=== PATIENT | male | born 1990 | race Caucasian/White ===

== ENCOUNTER 2019-03-18 09:42 | Emergency (ER) | payer OTHER ==
--- NOTE | 2019-03-18 10:09 | ED Physician Documentation ---
PD HPI ABD PAIN - Stated complaint Stated Complaint: HIP/GROIN PX - Chief complaint Chief Complaint: Abd Pain - History obtained from History obtained from: Patient - History of Present Illness Timing - onset: How many weeks ago (2) Timing - duration: Weeks (2) Timing - details: Gradual onset, Other (worsening for 2 days, R inguinal tenderness, swelling) Pain level max: 7 Pain level now: 2 Severity Comments: moderate when moving or palpating Quality: Fullness/distended, Pain Location: Other (Right inguinal crease) Radiation: Other (none) Improved by: Other (remaining still) Worsened by: Position, Palpation Associated symptoms: No: Fever, Nausea, Vomiting, Hematemesis, Diarrhea, Constipation, Melena, Hematochezia, Dysuria, Hematuria, Chest pain, Testicular pain Similar symptoms before: Diagnosis (has a hx of a R inguinal hernia repair in 1992 (at age 2)) Recently seen: Not recently seen - Treatment prior to arrival Treatment prior to arrival: none - Additional information Additional information: States he played [employer] yesterday which made his pain worse. But denies heavy lifting or strenuous activity prior to this. Review of Systems Ten Systems: 10 systems reviewed and negative Constitutional: denies: Fever Cardiac: reports: Reviewed and negative Respiratory: reports: Reviewed and negative GI: reports: Abdominal Pain, Abdominal Swelling. denies: Nausea, Vomiting, Constipation, Diarrhea, Hematemesis, Bloody / black stool : denies: Dysuria, Frequency, Hesitancy, Hematuria, Discharge, Testicular pain, Testicular mass Skin: reports: Reviewed and negative. denies: Rash, Lesions Musculoskeletal: reports: Reviewed and negative Neurologic: reports: Reviewed and negative Immunocompromised: reports: Reviewed and negative PD PAST MEDICAL HISTORY - Past Medical History Past Medical History: Yes Cardiovascular: None Respiratory: None Endocrine/Autoimmune: None GI: None : None HEENT: None Musculoskeletal: None Derm: None - Past Surgical History Past Surgical History: Yes General: Appendectomy HEENT: Tonsil/Adenoidectomy - Present Medications Home Medications: Ambulatory Orders Medication Instructions Recorded Confirmed No Known Home Medications 03/18/19 03/18/19 - Allergies Allergies/Adverse Reactions: Allergies Allergy/AdvReac Type Severity Reaction Status Date / Time No Known Drug Allergies Allergy Verified 03/18/19 09:46 - Social History Does the pt smoke?: No Smoking Status: Former smoker Does the pt drink ETOH?: Yes ETOH Use: Beer Does the pt have substance abuse?: No - Immunizations Immunizations are current?: Yes - POLST Patient has POLST: No PD ED PE NORMAL - Vitals Vital signs reviewed: Yes - General General: Alert and oriented X 3, No acute distress, Well developed/nourished - HEENT HEENT: Atraumatic, Pharynx benign - Neck Neck: Supple, no meningeal sign - Cardiac Cardiac: RRR - Respiratory Respiratory: No respiratory distress - Abdomen Abdomen: Soft, Other (mild distension in the R inguinal crease with obvious palpable mass or bowel with moderate tenderness to palpation, not reducible ) - Male Male : Deferred - Rectal Rectal: Deferred - Derm Derm: Normal color, Warm and dry, No rash - Extremities Extremities: No deformity, No edema - Neuro Neuro: Alert and oriented X 3, Normal speech Eye Opening: Spontaneous Motor: Obeys Commands Verbal: Oriented GCS Score: 15 - Psych Psych: Normal mood, Normal affect Results - Vitals Vitals: Vital Signs - 24 hr 03/18/19 03/18/19 09:47 12:23 Temperature 36.5 C Heart Rate 87 75 Respiratory 16 18 Rate Blood Pressure 140/98 H 145/104 H O2 Saturation 95 95 Oxygen O2 Source Room air - Labs Labs: Laboratory Tests 03/18/19 03/18/19 03/18/19 10:20 10:34 10:34 WBC 6.9 RBC 5.09 Hgb 14.7 Hct 44.1 MCV 86.6 MCH 28.9 MCHC 33.3 RDW 12.3 Plt Count 292 MPV 8.9 Neut # (Auto) 3.9 Lymph # (Auto) 2.0 [place] # (Auto) 0.8 Eos # (Auto) 0.2 Baso # (Auto) 0.0 Absolute Nucleated RBC 0.00 Nucleated RBC % 0.0 Sodium 141 Potassium 3.7 Chloride 107 Carbon Dioxide 25 Anion Gap 9.0 BUN 21 H Creatinine 1.3 H Estimated GFR (MDRD) 65 L Glucose 123 H Lactic Acid Calcium 8.9 Urine Color YELLOW Urine Clarity CLEAR Urine pH 5.5 Ur Specific [place] 1.025 Urine Protein NEGATIVE Urine Glucose (UA) NEGATIVE Urine Ketones NEGATIVE Urine Occult Blood SMALL H Urine Nitrite NEGATIVE Urine Bilirubin NEGATIVE Urine Urobilinogen 0.2 (NORMAL) Ur Leukocyte Esterase NEGATIVE Urine RBC 0-5 Urine WBC 0-3 Ur Squamous Epith Cells NONE SEEN Urine Bacteria None Seen Ur Microscopic Review INDICATED Urine Culture Comments NOT INDICATED 03/18/19 10:34 WBC RBC Hgb Hct MCV MCH MCHC RDW Plt Count MPV Neut # (Auto) Lymph # (Auto) [place] # (Auto) Eos # (Auto) Baso # (Auto) Absolute Nucleated RBC Nucleated RBC % Sodium Potassium Chloride Carbon Dioxide Anion Gap BUN Creatinine Estimated GFR (MDRD) Glucose Lactic Acid 1.3 Calcium Urine Color Urine Clarity Urine pH Ur Specific [place] Urine Protein Urine Glucose (UA) Urine Ketones Urine Occult Blood Urine Nitrite Urine Bilirubin Urine Urobilinogen Ur Leukocyte Esterase Urine RBC Urine WBC Ur Squamous Epith Cells Urine Bacteria Ur Microscopic Review Urine Culture Comments - Rads (name of study) CT abd/pelvis Radiology: Final report received, Discussed with rads, See rad report (R inguinal lymph nodes enlarged, no inguinal hernia, small umbilical hernia, fat containing ) PD MEDICAL DECISION MAKING - ED course Complexity details: reviewed results, re-evaluated patient, considered differential, d/w patient, other (d/w radiology) ED course: ddx- inguinal hernia, lymphadenopathy, UTI, kidney stone, mass 28 y/o M with hx and exam as documented, R inguinal pain for a few weeks, increasing, hx of inguinal hernia repair as a child. Palpable mass on exam thus obtained CT given possibility of incarcerated or strangulated hernia or other abnormality. Normal labs and urine. Pt noted to have no hernia but markedly enlarged inguinal lymph nodes. He has no hx of urinary symptoms, regional infectious symptoms, penile pain or dysuria or discharge or rash or lesions. No hx of cancer I discussed this with the radiologist and we are both concerned about malignancy. I discussed these results with the pt and he is understanding of the results and need for f/u with his PCP to likely obtain a lymph node biopsy. He is stable for discharge with outpt f/u and will call his PCP office today to obtain urgent f/u. Departure - Departure Disposition: 01 Home, Self Care Clinical Impression: Lymph node enlargement, Umbilical hernia Condition: Stable Record reviewed to determine appropriate education?: Yes Follow-Up: your, doctor [Other] Comments: Your CT scan today shows some enlarged lymph nodes in your right inguinal area. These are larger than normal and need to be followed up by your primary care doctor. You likely need a lymph node biopsy to assess for lymphoma. Your labs and imaging was otherwise normal except a small umbilical hernia. You can use tylenol and ibuprofen as needed for pain. Discharge Date/Time: 03/18/19 12:26
[2019-03-18] MEDS ORDERED: IOVERSOL 320 100 ML VIAL IVP ONE (10:19)
[2019-03-18 10:33] LABS: BILIRUBIN,URINE NEGATIVE (NEGATIVE); GLUCOSE, URINE (UA) NEGATIVE (NEGATIVE); KETONES,URINE (UA) NEGATIVE (NEGATIVE); LEUKOCYTE ESTERASE, URINE NEGATIVE (NEGATIVE); NITRITE,URINE NEGATIVE (NEGATIVE); OCCULT BLOOD,URINE SMALL (NEGATIVE); PH,URINE 5.5 PH (5.0-7.5); PROTEIN,URINE NEGATIVE (NEGATIVE); UROBILINOGEN,URINE 0.2 (NORMAL) E.U./dL (NORMAL)
[2019-03-18 10:36] LABS: CLARITY,URINE CLEAR (CLEAR)
[2019-03-18 10:37] LABS: BASOPHILS % (AUTO) 0.4 %; EOSINOPHILS # (AUTO) 0.2 10^3/uL (0.0-0.7); EOSINOPHILS % (AUTO) 2.3 %; HGB - HEMOGLOBIN 14.7 g/dL (14.0-18.0); LYMPHOCYTES % (AUTO) 28.5 %; MEAN CORPUSCULAR HEMOGLOBIN 28.9 pg (27.0-31.0); MEAN CORPUSCULAR HGB CONC 33.3 g/dL (32.0-36.0); MEAN CORPUSCULAR VOLUME 86.6 fL (80.0-94.0); MEAN PLATELET VOLUME 8.9 fL (7.4-11.4); MONOCYTES # (AUTO) 0.8 10^3/uL (0.0-1.0); NEUTROPHILS # (AUTO) 3.9 10^3/uL (1.5-6.6); NEUTROPHILS % (AUTO) 56.4 %; PLT - PLATELET COUNT 292 10^3/uL (130-450); RED BLOOD COUNT 5.09 10^6/uL (4.70-6.10); RED CELL DISTRIBUTION WIDTH 12.3 % (12.0-15.0); WHITE BLOOD COUNT 6.9 x10^3/uL (4.8-10.8)
[2019-03-18 10:43] LABS: BACTERIA,URINE None Seen /HPF (None Seen); RBC,URINE 0-5 /HPF (0-5); SQUAMOUS EPITHELIAL CELL,UR NONE SEEN (<= Few)
[2019-03-18 10:47] LABS: CALCIUM 8.9 mg/dL (8.5-10.3); CREATININE 1.3 mg/dL (0.6-1.2)
[2019-03-18] MEDS ORDERED: SODIUM CHLORIDE 0.9% 1,000 ML IV ONE (11:06)
--- NOTE | 2019-03-18 11:50 | CT Report ---
Reason: R ing hernia s/p repair 1992, poss incarcerated Procedure Date: 03/18/2019 Accession Number: [id number] / [id number] Procedure: CT - Abdomen/Pelvis W CPT Code: Addended Final Report FULL RESULT: EXAM: CT ABDOMEN AND PELVIS EXAM DATE: 03/18/2019 11:09 AM. CLINICAL HISTORY: R ing hernia s/p repair 1992, poss incarcerated. COMPARISONS: None. TECHNIQUE: Routine helical CT imaging was performed through the abdomen and pelvis. IV contrast: OPTI 320 100ML. Enteric contrast: No. Reconstructions: Coronal and sagittal. In accordance with CT protocol optimization, one or more of the following dose reduction techniques were utilized for this exam: automated exposure control, adjustment of mA and/or KV based on patient size, or use of iterative reconstructive technique. FINDINGS: Lung Bases: Unremarkable. Liver: Normal. No masses. Gallbladder/Bile Ducts: Unremarkable. Spleen: Normal. Pancreas: Normal. Adrenal Glands: Normal. Kidneys: Normal. No masses or hydronephrosis. Peritoneal Cavity/Bowel: Small fat-containing umbilical hernia measuring 5 mm at the neck. No free fluid, free air or adenopathy. No masses or acute inflammatory process. The appendix is not visualized. Pelvic Organs: Normal. The bladder and visualized pelvic organs are within normal limits. Vasculature: No aneurysms or other significant abnormality. Bones: No significant abnormality. Other: None. IMPRESSION: 1. Small fat-containing umbilical hernia. 2. No other hernias identified. 3. No bowel obstruction or inflammatory process associated with the bowel. [facility] ADDENDUM: 03/18/19 11:57 In addition, there are bilateral groin lymph nodes measuring up to 3.0 x 1.5 cm on the right and 2.1 x 1.2 cm on the left. There is a right inguinal lymph node measuring 2.5 x 1.7 cm. The palpable finding on physical exam is thought likely related to the prominent lymph node on the right. These are thought possibly to be reactive in nature but other etiologies such as lymphoma cannot be excluded. Findings were discussed with Dr. Roberts by phone on 03/18/2019 at 12:05 PM.
[2019-03-18 12:26] VITALS: BP 145/104
[2019-03-18] MEDS: IOVERSOL 320 100 ML VIAL IVP ONE (14:20)
== END 2019-03-18 12:26 | disposition home or self-care (01) ==
LOC: ED 09:42
DX: R59.0 Localized enlarged lymph nodes (principal); K42.9 Umbilical hernia without obstruction or gangrene; Z87.891 Personal history of nicotine dependence
CPT/HCPCS: 36415; 74177; 80048; 81001; 83605; 85025; 99284; Q9967; 81003; 87086

== ENCOUNTER 2019-06-19 08:02 | Outpatient (CLI) | payer OTHER ==
[2019-06-19] MEDS ORDERED: BUFFERED LIDOCAINE 10 ML SYRINGE ONE (08:51)
[2019-06-19] MEDS ORDERED: BUFFERED LIDOCAINE 10 ML SYRINGE IU ONE (13:21)
--- NOTE | 2019-06-19 16:41 | Ultrasound Report ---
Reason: LOWER ABD PAIN, RIGHT INGUINAL LYMPH NODE Procedure Date: 06/19/2019 Accession Number: [id number] / [id number] Procedure: US - Needle Bx Lymph Node CPT Code: Final Report FULL RESULT: PROCEDURE: ULTRASOUND GUIDED BIOPSY PREOPERATIVE DIAGNOSIS:Right groin lymphadenopathy, possibly malignant. POSTOPERATIVE DIAGNOSIS: Same TECHNIQUE: Following written and oral informed consent including procedure risks and alternatives, the patient was brought to the ultrasound suite and positioned. Using local anesthesia, sterile technique, and direct ultrasound control, a guiding needle was advanced to the mass. A total of 3 core samples were obtained. The guiding needle was removed. The patient tolerated the procedure well and there were no immediate complications. ANESTHESIA: The interventional radiology nurse administered Versed and fentanyl for moderate sedation and continuously monitored the patient for 15 minutes. [employer] SALES ASSESSOR: Dr Briceno ESTIMATED BLOOD LOSS: Minimal FLUOROSCOPY TIME: None. COMPLICATIONS: None. CONDITION: Good. SPECIMEN: 18 Gauge core biopsy x 3. IMPLANTS: None. FINDINGS: Real-time ultrasound performed with static images saved to the PACS demonstrating the needle directed into the mass. IMPRESSION: Uncomplicated ultrasound guided biopsy as described. Pathology results will be reported separately. [facility]
== END 2019-06-19 08:03 | disposition home or self-care (01) ==
LOC: DI 08:02
PROVIDERS: ATTEND Family Medicine
DX: R10.30 Lower abdominal pain, unspecified (principal); R19.03 Right lower quadrant abdominal swelling, mass and lump
CPT/HCPCS: 38505